=== PATIENT | male | born 1970 | race Caucasian/White ===

== ENCOUNTER 2016-05-08 07:01 | Day surgery (SDC) | payer OTHER ==
[~2016-05-08] VITALS: Ht 180.3 cm; Wt 77.3 kg
[~2016-05-08 07:01] MED LIST: FentaNYL CITRATE-PF 100 MCG/2 ML VIAL IVP ONE; IBUP-2070 PO; INSLAN SQ; INSU100C14 SQ; LIDOCAINE HCL/PF 2% 5 ML VIAL IM ONE; METF500T4 PO; MIDAZOLAM HCL 2 MG/2 ML VIAL IVP ONE; ONDANSETRON HCL 4 MG/2 ML VIAL IVP ONE; PROPOFOL 1% 20 ML VIAL IVP ONE; SERT100T12 PO
[2016-05-08] MEDS ORDERED: RINGERS SOLUTION,LACTATED 1,000 ML IV ONE ×2 (07:14→07:30)
[2016-05-08] MEDS ORDERED: LIDOCAINE HCL 2%/EPI 1:200,000/PF 10 ML VIAL ONE ×2 (07:32)
[2016-05-08] MEDS ORDERED: BUPIVACAINE HCL/PF 0.5% 30 ML VIAL ONE (07:32)
[2016-05-08 08:14] LABS: ANION GAP 10 mmol/L (8-16); CARBON DIOXIDE 29 mmol/L (22-29); CHLORIDE 98 mmol/L (98-107); CREATININE 0.95 mg/dL (0.60-1.30); GLOMERULAR FILTR. RATE CALC > 60 mL/min (>60); SODIUM SERUM 137 mmol/L (136-145); UREA NITROGEN, BLOOD 17 mg/dL (7-18)
[2016-05-08 08:17] LABS: GLUCOSE COMMENT 1 Doctor Notified; GLUCOSE,POINT OF CARE 293 MG/DL (70-110)
[2016-05-08 08:18] LABS: ALANINE AMINOTRANSFERASE 15 U/L (12-78); ASPARTATE AMINOTRANSFERASE 17 U/L (15-37); BILIRUBIN,TOTAL 0.4 mg/dL (0.1-1.0); TOTAL PROTEIN, SERUM 8.1 g/dL (6.4-8.2)
[2016-05-08] MEDS ORDERED: ACETAMINOPHEN 1000 MG/ISO-OSM 100 ML IV ONE (08:25)
[2016-05-08] MEDS ORDERED: GUM MASTIC/STORAX/MSAL/ALCOHOL LIQUID 0.67 ML VIAL TP ONE (08:27)
[2016-05-08] MEDS ORDERED: INSULIN REGULAR, HUMAN 100 UNITS/ML IVP ONE (08:30)
[2016-05-08] MEDS ORDERED: MEPERIDINE-PF 25 MG/ML SYRINGE IVP PRN (08:45)
[2016-05-08] MEDS ORDERED: HYDROmorphone 2 MG/ML SYRINGE IVP PRN (08:45)
[2016-05-08] MEDS ORDERED: FentaNYL CITRATE-PF 100 MCG/2 ML VIAL IVP PRN (08:45)
[2016-05-08] MEDS ORDERED: OXYGEN THERAPY IH SCH (08:49)
[2016-05-08] MEDS ORDERED: CLINDAMYCIN 600 MG/D5% WATER 50 ML IV ONE (09:00)
[2016-05-08] MEDS ORDERED: IBUPROFEN 400 MG TABLET PO PRN (09:15)
[2016-05-08] MEDS ORDERED: ACETAMINOPHEN 500 MG TABLET PO PRN (09:15)
[2016-05-08 10:51] LABS: GLUCOSE,POINT OF CARE 305 MG/DL (70-110)
== END 2016-05-08 11:05 | disposition home or self-care (01) ==
LOC: SURGERY 07:01
PROVIDERS: ATTEND Surgery
DX: L72.0 Epidermal cyst (principal); E11.9 Type 2 diabetes mellitus without complications; E78.00 Pure hypercholesterolemia, unspecified; F17.200 Nicotine dependence, unspecified, uncomplicated; Z88.0 Allergy status to penicillin; Z98.890 Other specified postprocedural states
CPT/HCPCS: 27047; 36415; 80053; 82962; 88304; J0131; J2250; J2405; J2704; J3010; J3490 ×4; J7120